=== PATIENT | male | born 1935 | race Caucasian/White ===

== ENCOUNTER 2017-06-29 13:29 | Inpatient (IN) | payer OTHER, MEDICARE ==
[~2017-06-29] VITALS: Ht 180.3 cm; Wt 98.2 kg
[~2017-06-29 13:29] MED LIST: CARV25TA2 PO; COU4T PO; CYA500T PO; FURO20TA4 PO; LACT1CAP57 PO; LISI-600 PO; LYR75C PO; MAGN400C PO; METF500T PO; POTA-82 PO; SIMV20TA5 PO; SPIIN INH; WARF3TAB7 PO
[2017-06-29 14:00] LABS: BASOPHILS % (AUTO) 0.1 % (0-1); EOSINOPHILS # (AUTO) 0.1 X10'3 (0-0.9); EOSINOPHILS % (AUTO) 2.5 % (0-6); HEMATOCRIT 28.1 % (42.0-52.0); HEMOGLOBIN 9.3 g/dl (14.0-17.9); LYMPHOCYTES # (AUTO) 0.4 X10'3 (1.1-4.8); LYMPHOCYTES % (AUTO) 8.8 % (21-51); MEAN CORPUSCULAR HEMOGLOBIN 34.3 PG (27.0-31.0); MEAN CORPUSCULAR HGB CONC 33.3 % (33.0-36.5); MEAN PLATELET VOLUME 6.9 FL (7.4-10.4); MONOCYTES # (AUTO) 0.4 X10'3 (0-0.9); MONOCYTES % (AUTO) 10.6 % (2-12); NEUTROPHILS # (AUTO) 3.2 X10'3 (1.8-7.7); PLATELET COUNT 173 X10'3 (140-440); RED BLOOD COUNT 2.72 X10'6 (4.70-6.10); RED CELL DISTRIBUTION WIDTH 14.8 % (11.5-14.5); WHITE BLOOD COUNT 4.1 X10'3 (4.5-11.0)
[2017-06-29 14:11] LABS: INR 3.9 INR; PARTIAL THROMBOPLASTIN TIME 44 SECONDS (22-32); PROTHROMBIN TIME 38.7 SECONDS (9.0-12.0)
[2017-06-29 14:21] LABS: ALANINE AMINOTRANSFERASE 25 U/L (12-78); ALBUMIN 3.5 G/DL (3.4-5.0); ALBUMIN/GLOBULIN RATIO 0.9 (1.1-1.5); ALKALINE PHOSPHATASE 167 IU/L (46-116); ANION GAP 8 (8-16); ASPARTATE AMINO TRANSFERASE 23 U/L (10-37); BILIRUBIN,TOTAL 0.7 MG/DL (0.1-1.0); BLOOD UREA NITROGEN 24 MG/DL (7-18); BUN/CREATININE RATIO 23.3 (5.4-32.0); CALCIUM 8.9 MG/DL (8.5-10.1); CHLORIDE 99 MMOL/L (99-107); CREATININE 1.03 MG/DL (0.60-1.10); GLUCOSE 102 MG/DL (70-104); POTASSIUM 4.9 MMOL/L (3.5-5.1); SODIUM 134 MMOL/L (135-145); TOTAL CARBON DIOXIDE 26.9 MMOL/L (24-32); TOTAL PROTEIN 7.2 G/DL (6.4-8.2); eGFR 69 ML/MIN
[2017-06-29] MEDS ORDERED: furosemide 10 MG/1 ML 10ml inj IV ONE (15:15)
[2017-06-29] MEDS ORDERED: potassium Cl 40MEQ/NS 500ml 500 ML IV PRN ×2 (15:50)
[2017-06-29] MEDS ORDERED: magnesium Cl slow-release 64mg tablet PO PRN (15:50)
[2017-06-29] MEDS ORDERED: potassium Cl 20 mEq SR tablet PO PRN ×2 (15:50)
[2017-06-29] MEDS ORDERED: mag hydrox/Alum hydrox/simeth 30ml oral suspension PO PRN (15:50)
[2017-06-29] MEDS ORDERED: acetaminophen 325mg tablet PO PRN ×2 (15:50)
[2017-06-29] MEDS ORDERED: magnesium 4gm in 100ml NS 100 ML IV PRN (15:50)
[2017-06-29] MEDS ORDERED: ondansetron/PF 4mg/2ml inj IV PRN (15:50)
[2017-06-29] MEDS ORDERED: magnesium hydroxide 30ml (MOM) UD suspension PO PRN (15:50)
[2017-06-29] MEDS: K and/or MAG REPLACEMENT MC SCH (15:50)
[2017-06-29] MEDS ORDERED: magnesium 2GM in 50ml NS 50 ML IV PRN (15:50)
[2017-06-29] MEDS: potassium Cl 20 mEq SR tablet PO SCH (16:10)
[2017-06-29] MEDS ORDERED: DOCU100C41 PO (17:44)
[2017-06-29] MEDS ORDERED: BUDE10.22 INH (17:44)
[2017-06-29] MEDS ORDERED: ASPI-1265 PO (17:44)
[2017-06-29] MEDS ORDERED: ALBU8.5H8 INH (17:44)
[2017-06-29] MEDS ORDERED: METF500T PO (17:53)
[2017-06-29] MEDS ORDERED: MULT-38 PO (17:53)
[2017-06-29] MEDS ORDERED: PREG150C PO (17:53)
[2017-06-29] MEDS ORDERED: SILD50TA PO (17:53)
[2017-06-29] MEDS ORDERED: FURO40TA4 PO (17:53)
[2017-06-29 19:00] VITALS: BP 153/58
[2017-06-29 20:39] LABS: HEMOGLOBIN A1C 6.1 % (4.5-6.2)
[2017-06-29] MEDS: furosemide 40mg/4ml inj IV SCH (20:46)
[2017-06-29] MEDS: atorvastatin 10mg tablet PO SCH (20:47)
[2017-06-29] MEDS: lisinopril 10 MG tablet PO SCH (20:47)
[2017-06-29] MEDS: pregabalin 75mg capsule PO SCH (20:47)
[2017-06-29] MEDS: magnesium oxide 400mg tablet PO SCH (20:47)
[2017-06-29] MEDS: carVEDilol 12.5mg tablet PO SCH (20:47)
[2017-06-29] MEDS ORDERED: temazepam 15mg capsule PO PRN (21:00)
[2017-06-29] MEDS ORDERED: CARVEDILOL 12.5 MG PO SCH (21:00)
[2017-06-29] MEDS: ipratropium 0.5 MG/2.5ML nebule IH SCH (21:17)
[2017-06-29 23:00] VITALS: BP 100/50
[2017-06-30 01:50] LABS: PROTHROMBIN TIME 29.5 SECONDS (9.0-12.0)
[2017-06-30 01:54] LABS: HEMATOCRIT 24.9 % (42.0-52.0); HEMOGLOBIN 8.5 g/dl (14.0-17.9); MEAN CORPUSCULAR HEMOGLOBIN 34.9 PG (27.0-31.0); MEAN CORPUSCULAR VOLUME 102.6 FL (78-98); MEAN PLATELET VOLUME 7.6 FL (7.4-10.4); PLATELET COUNT 163 X10'3 (140-440); RED BLOOD COUNT 2.43 X10'6 (4.70-6.10); RED CELL DISTRIBUTION WIDTH 14.6 % (11.5-14.5); WHITE BLOOD COUNT 3.8 X10'3 (4.5-11.0)
[2017-06-30 01:57] LABS: ALBUMIN 3.2 G/DL (3.4-5.0); ANION GAP 8 (8-16); BLOOD UREA NITROGEN 24 MG/DL (7-18); BUN/CREATININE RATIO 22.6 (5.4-32.0); CALCIUM 8.1 MG/DL (8.5-10.1); CHLORIDE 98 MMOL/L (99-107); CREATININE 1.06 MG/DL (0.60-1.10); GLUCOSE 97 MG/DL (70-104); MAGNESIUM 1.7 MG/DL (1.5-2.4); POTASSIUM 3.9 MMOL/L (3.5-5.1); SODIUM 134 MMOL/L (135-145); TOTAL CARBON DIOXIDE 28.5 MMOL/L (24-32); eGFR 67 ML/MIN
[2017-06-30 03:00] VITALS: BP 120/52
[2017-06-30] MEDS: ipratropium 0.5 MG/2.5ML nebule IH SCH ×4 (03:04→20:19)
[2017-06-30 06:00] VITALS: BP 123/62
[2017-06-30] MEDS: furosemide 40mg/4ml inj IV SCH ×2 (07:17→19:28)
[2017-06-30] MEDS: carVEDilol 12.5mg tablet PO SCH (07:17)
[2017-06-30] MEDS: pregabalin 75mg capsule PO SCH ×2 (07:17→19:29)
[2017-06-30] MEDS: K and/or MAG REPLACEMENT MC SCH (07:22)
[2017-06-30] MEDS ORDERED: enoxaparin 40mg/0.4ml syringe SQ SCH (08:00)
[2017-06-30] MEDS ORDERED: warfarin 4mg tablet PO SCH (08:00)
[2017-06-30 11:00] VITALS: BP 108/41
[2017-06-30 15:00] VITALS: BP 112/64
[2017-06-30 18:00] VITALS: BP 108/44
[2017-06-30] MEDS: guaiFENesin ER 600mg tablet PO SCH (19:28)
[2017-06-30] MEDS: carvedilol 6.25mg tablet PO SCH (19:28)
[2017-06-30] MEDS: atorvastatin 10mg tablet PO SCH (19:29)
[2017-06-30] MEDS: magnesium oxide 400mg tablet PO SCH (19:30)
[2017-06-30] MEDS: lisinopril 10 MG tablet PO SCH (19:30)
[2017-06-30 22:00] VITALS: BP 98/52
[2017-07-01 02:00] VITALS: BP 113/54
[2017-07-01] MEDS: ipratropium 0.5 MG/2.5ML nebule IH SCH ×2 (02:57→08:47)
[2017-07-01 05:22] LABS: HEMATOCRIT 25.4 % (42.0-52.0); HEMOGLOBIN 8.5 g/dl (14.0-17.9); MEAN CORPUSCULAR HEMOGLOBIN 34.1 PG (27.0-31.0); MEAN CORPUSCULAR HGB CONC 33.5 % (33.0-36.5); MEAN CORPUSCULAR VOLUME 101.8 FL (78-98); MEAN PLATELET VOLUME 7.4 FL (7.4-10.4); PLATELET COUNT 155 X10'3 (140-440); RED CELL DISTRIBUTION WIDTH 14.4 % (11.5-14.5); WHITE BLOOD COUNT 3.5 X10'3 (4.5-11.0)
[2017-07-01 05:41] LABS: PROTHROMBIN TIME 20.5 SECONDS (9.0-12.0)
[2017-07-01 05:53] LABS: ALBUMIN 3.1 G/DL (3.4-5.0); ANION GAP 6 (8-16); BLOOD UREA NITROGEN 26 MG/DL (7-18); BUN/CREATININE RATIO 24.8 (5.4-32.0); CALCIUM 8.4 MG/DL (8.5-10.1); CHLORIDE 98 MMOL/L (99-107); CREATININE 1.05 MG/DL (0.60-1.10); GLUCOSE 104 MG/DL (70-104); SODIUM 134 MMOL/L (135-145); TOTAL CARBON DIOXIDE 29.8 MMOL/L (24-32); eGFR 68 ML/MIN
[2017-07-01 06:00] VITALS: BP 122/68
[2017-07-01] MEDS: potassium Cl 20 mEq SR tablet PO SCH (07:59)
[2017-07-01] MEDS: guaiFENesin ER 600mg tablet PO SCH (07:59)
[2017-07-01] MEDS: furosemide 40mg/4ml inj IV SCH (07:59)
[2017-07-01] MEDS: carvedilol 6.25mg tablet PO SCH (07:59)
[2017-07-01] MEDS: pregabalin 75mg capsule PO SCH (07:59)
[2017-07-01] MEDS: K and/or MAG REPLACEMENT MC SCH (08:00)
[2017-07-01] MEDS ORDERED: FURO40TA4 PO (10:01)
== END 2017-07-01 11:45 | disposition home or self-care (01) | DRG 292 ==
LOC: ER 13:29 → ED HOLD 15:47 → PCU 3S 18:00
PROVIDERS: ADMIT Family Medicine; ATTEND Family Medicine
DX: I11.0 Hypertensive heart disease with heart failure (principal); E87.1 Hypo-osmolality and hyponatremia; D68.9 Coagulation defect, unspecified; I48.91 Unspecified atrial fibrillation; E11.9 Type 2 diabetes mellitus without complications; D64.9 Anemia, unspecified; I50.23 Acute on chronic systolic (congestive) heart failure; I25.10 Atherosclerotic heart disease of native coronary artery without angina pectoris; E78.00 Pure hypercholesterolemia, unspecified; J44.9 Chronic obstructive pulmonary disease, unspecified; R79.89 Other specified abnormal findings of blood chemistry; E78.5 Hyperlipidemia, unspecified; Z96.611 Presence of right artificial shoulder joint; Z96.612 Presence of left artificial shoulder joint; Z96.652 Presence of left artificial knee joint; Z95.5 Presence of coronary angioplasty implant and graft; Z95.2 Presence of prosthetic heart valve; I25.2 Old myocardial infarction; Z79.01 Long term (current) use of anticoagulants; Z88.6 Allergy status to analgesic agent; Z86.19 Personal history of other infectious and parasitic diseases; Z85.72 Personal history of non-Hodgkin lymphomas; Z86.73 Personal history of transient ischemic attack (TIA), and cerebral infarction without residual deficits; Z82.41 Family history of sudden cardiac death; Z82.49 Family history of ischemic heart disease and other diseases of the circulatory system
CPT/HCPCS: 36415; 71045; 80048; 80053; 83036; 83735; 83880; 84484; 85025; 85027; 85610; 85730; 87070; 93005; 93306; 94640; 94760; 96374; 99285; A6258; J1940; J7030

== ENCOUNTER 2018-02-16 22:08 | Emergency (ER) | payer MEDICARE, OTHER ==
[~2018-02-16] VITALS: Ht 172.7 cm; Wt 100.2 kg
[~2018-02-16 22:08] MED LIST changes: +ALBU8.5H8 INH; +ASPI-1265 PO; +BUDE10.22 INH; +DOCU100C41 PO; -FURO20TA4 PO; +FURO40TA4 PO; -LYR75C PO; -MAGN400C PO; +MULT-38 PO; +PREG150C PO; +SILD50TA PO; +WARF3TAB56 PO; -WARF3TAB7 PO
[2018-02-16] MEDS ORDERED: HYDROcodone/acetaminophen 10/325mg tab PO ONE (23:50)
[2018-02-17] MEDS ORDERED: dexamethasone sod phosphate 10mg/ml inj PO STA (00:26)
[2018-02-17 01:43] LABS: ALANINE AMINOTRANSFERASE 20 U/L (12-78); ALBUMIN 3.6 G/DL (3.4-5.0); ALKALINE PHOSPHATASE 109 IU/L (46-116); ANION GAP 9 (8-16); ASPARTATE AMINO TRANSFERASE 16 U/L (10-37); BILIRUBIN,TOTAL 1.2 MG/DL (0.1-1.0); BLOOD UREA NITROGEN 16 MG/DL (7-18); BUN/CREATININE RATIO 17.8 (5.4-32.0); CALCIUM 8.9 MG/DL (8.5-10.1); CHLORIDE 100 MMOL/L (99-107); GLUCOSE 108 MG/DL (70-104); POTASSIUM 3.9 MMOL/L (3.5-5.1); SODIUM 136 MMOL/L (135-145); TOTAL CARBON DIOXIDE 27.1 MMOL/L (24-32); TOTAL PROTEIN 7.1 G/DL (6.4-8.2); eGFR 81 ML/MIN
[2018-02-17 02:16] VITALS: BP 131/81
[2018-02-17 02:18] LABS: BASOPHILS % (AUTO) 0 % (0-1); EOSINOPHILS % (AUTO) 0.6 % (0-6); HEMATOCRIT 28.3 % (42.0-52.0); HEMOGLOBIN 9.6 g/dl (14.0-17.9); LYMPHOCYTES # (AUTO) 0.3 X10'3 (1.1-4.8); LYMPHOCYTES % (AUTO) 5.3 % (21-51); MEAN CORPUSCULAR HEMOGLOBIN 34.4 PG (27.0-31.0); MEAN CORPUSCULAR HGB CONC 33.9 % (33.0-36.5); MEAN CORPUSCULAR VOLUME 101.5 FL (78-98); MEAN PLATELET VOLUME 7.5 FL (7.4-10.4); MONOCYTES # (AUTO) 0.5 X10'3 (0-0.9); MONOCYTES % (AUTO) 8.4 % (2-12); NEUTROPHILS # (AUTO) 5.4 X10'3 (1.8-7.7); NEUTROPHILS % (AUTO) 85.7 % (42-75); PLATELET COUNT 191 X10'3 (140-440); RED BLOOD COUNT 2.79 X10'6 (4.70-6.10); RED CELL DISTRIBUTION WIDTH 14.8 % (11.5-14.5); WHITE BLOOD COUNT 6.3 X10'3 (4.5-11.0)
[2018-02-17] MEDS ORDERED: COLC1TAB2 PO (02:22)
[2018-02-17] MEDS ORDERED: HYDR-3965 PO (02:22)
== END 2018-02-17 02:53 | disposition home or self-care (01) ==
LOC: ER 22:09
DX: T82.897A Other specified complication of cardiac prosthetic devices, implants and grafts, initial encounter (principal); M10.9 Gout, unspecified; M25.522 Pain in left elbow; M25.422 Effusion, left elbow; I48.91 Unspecified atrial fibrillation; I11.0 Hypertensive heart disease with heart failure; I50.9 Heart failure, unspecified; E78.00 Pure hypercholesterolemia, unspecified; I25.2 Old myocardial infarction; J44.9 Chronic obstructive pulmonary disease, unspecified; E11.9 Type 2 diabetes mellitus without complications; Z95.5 Presence of coronary angioplasty implant and graft; Z98.890 Other specified postprocedural states; Z95.0 Presence of cardiac pacemaker; Z88.5 Allergy status to narcotic agent; Z79.82 Long term (current) use of aspirin; Z79.01 Long term (current) use of anticoagulants; Z79.899 Other long term (current) drug therapy; Y92.9 Unspecified place or not applicable
CPT/HCPCS: 36415; 73070; 80053; 84145; 84550; 85025; 99285; A6251; A6255; A6258; A6449; J1100; A6257

== ENCOUNTER 2018-03-17 18:42 | Inpatient (IN) | payer MEDICARE, OTHER ==
[~2018-03-17] VITALS: Ht 172.7 cm; Wt 98.2 kg
[~2018-03-17 18:42] MED LIST changes: +COLC1TAB2 PO; +HYDR-3965 PO
[2018-03-17] MEDS ORDERED: vancomycin/NS 1 GM ADD-VANTAGE 250 ML IV ONE (21:50)
[2018-03-17] MEDS ORDERED: CefTRIAXone 2gm/D5W 50ml 50 ML IV ONE (21:50)
[2018-03-17] MEDS ORDERED: normal saline 1000ml 1,000 ML IV ONE (21:55)
[2018-03-17 22:55] LABS: BASOPHILS % (AUTO) 0.3 % (0-1); EOSINOPHILS # (AUTO) 0.2 X10'3 (0-0.9); EOSINOPHILS % (AUTO) 3.7 % (0-6); HEMATOCRIT 30.3 % (42.0-52.0); HEMOGLOBIN 10.4 g/dl (14.0-17.9); LYMPHOCYTES # (AUTO) 0.4 X10'3 (1.1-4.8); LYMPHOCYTES % (AUTO) 7.9 % (21-51); MEAN CORPUSCULAR HEMOGLOBIN 33.7 PG (27.0-31.0); MEAN CORPUSCULAR HGB CONC 34.2 % (33.0-36.5); MEAN CORPUSCULAR VOLUME 98.5 FL (78-98); MEAN PLATELET VOLUME 7.1 FL (7.4-10.4); MONOCYTES # (AUTO) 0.5 X10'3 (0-0.9); MONOCYTES % (AUTO) 8.7 % (2-12); NEUTROPHILS # (AUTO) 4.3 X10'3 (1.8-7.7); NEUTROPHILS % (AUTO) 79.4 % (42-75); PLATELET COUNT 280 X10'3 (140-440); RED BLOOD COUNT 3.07 X10'6 (4.70-6.10); RED CELL DISTRIBUTION WIDTH 15.1 % (11.5-14.5); WHITE BLOOD COUNT 5.4 X10'3 (4.5-11.0)
[2018-03-17 23:10] LABS: INR 1.9 INR; PARTIAL THROMBOPLASTIN TIME 42 SECONDS (22-32); PROTHROMBIN TIME 18.9 SECONDS (9.0-12.0)
[2018-03-17 23:12] LABS: CLARITY,URINE CLEAR (Clear); COLOR,URINE YELLOW (Yellow); GLUCOSE, URINE NEGATIVE (Neg); KETONES,URINE NEGATIVE (Neg); LEUKOCYTE ESTERASE ,URINE NEGATIVE (Neg); NITRITES, URINE NEGATIVE (Neg); OCCULT BLOOD,URINE NEGATIVE (Neg); PH,URINE 6.5 (4.8-8.0); PROTEIN,URINE NEGATIVE (Neg); UROBILINOGEN,URINE 0.2 E.U/dL (0.2-1.0)
[2018-03-17 23:13] LABS: ALANINE AMINOTRANSFERASE 21 U/L (12-78); ALBUMIN 3.3 G/DL (3.4-5.0); ALBUMIN/GLOBULIN RATIO 0.8 (1.1-1.5); ALKALINE PHOSPHATASE 127 IU/L (46-116); ANION GAP 9 (8-16); ASPARTATE AMINO TRANSFERASE 21 U/L (10-37); BILIRUBIN,TOTAL 0.5 MG/DL (0.1-1.0); BLOOD UREA NITROGEN 10 MG/DL (7-18); CHLORIDE 98 MMOL/L (99-107); CREATININE 0.83 MG/DL (0.60-1.10); GLUCOSE 112 MG/DL (70-104); MAGNESIUM 1.9 MG/DL (1.5-2.4); POTASSIUM 4.3 MMOL/L (3.5-5.1); SODIUM 137 MMOL/L (135-145); TOTAL CARBON DIOXIDE 30.5 MMOL/L (24-32); TOTAL PROTEIN 7.5 G/DL (6.4-8.2); eGFR 89 ML/MIN
[2018-03-17 23:13] LABS: UA COLLECTION TYPE VOIDED
[2018-03-17] MEDS ORDERED: LIDO1ADH TP (23:33)
[2018-03-18] MEDS ORDERED: acetaminophen 650mg rectal suppository RC PRN (00:05)
[2018-03-18] MEDS ORDERED: insulin Lispro (HumaLOG) vial - multi-dose SQ SCH (00:05)
[2018-03-18] MEDS ORDERED: glucagon, human recombinant 1mg kit SUBCUT PRN (00:05)
[2018-03-18] MEDS ORDERED: ondansetron/PF 4mg/2ml inj IV PRN (00:05)
[2018-03-18] MEDS ORDERED: metoclopramide 5 mg/ml inj IV PRN (00:05)
[2018-03-18] MEDS ORDERED: diphenhydrAMINE 50 mg/ml inj IV PRN (00:05)
[2018-03-18] MEDS ORDERED: HYDROcodone/acetaminophen 5mg/325mg tablet PO PRN (00:05)
[2018-03-18] MEDS ORDERED: diphenhydrAMINE 25mg capsule PO PRN (00:05)
[2018-03-18] MEDS ORDERED: acetaminophen 325mg tablet PO PRN ×2 (00:05)
[2018-03-18] MEDS ORDERED: dextrose ORAL solution 15 GM/59 ML bottle PO PRN ×2 (00:05)
[2018-03-18] MEDS ORDERED: dextrose 50%-water 50ml dispensing syringe IV PRN ×2 (00:05)
[2018-03-18] MEDS ORDERED: bisacodyl 10mg suppository rectal RC PRN (00:05)
[2018-03-18] MEDS ORDERED: magnesium hydroxide 30ml (MOM) UD suspension PO PRN (00:05)
[2018-03-18] MEDS ORDERED: mag hydrox/Alum hydrox/simeth 30ml oral suspension PO PRN (00:05)
[2018-03-18] MEDS ORDERED: MESSAGE TO PHARMACY PO ONE (00:05)
[2018-03-18 00:45] LABS: HEMOGLOBIN A1C 6.2 % (4.5-6.2)
[2018-03-18 01:00] VITALS: BP 151/77
[2018-03-18] MEDS ORDERED: albuterol 2.5 MG/3 ML nebule NEB PRN (04:00)
[2018-03-18 06:00] VITALS: BP 156/79
[2018-03-18] MEDS: pregabalin 75mg capsule PO SCH ×2 (07:24→20:22)
[2018-03-18] MEDS: docusate sod 100mg capsule PO SCH ×2 (07:25→20:22)
[2018-03-18] MEDS: furosemide 10 MG/1 ML 10ml inj IV SCH ×2 (07:29→20:22)
[2018-03-18] MEDS: pantoprazole 40mg Tablet.DR PO SCH (07:30)
[2018-03-18] MEDS: piperacillin/tazo 4.5gm/100ml 100 ML IV SCH ×2 (07:48→16:19)
[2018-03-18] MEDS ORDERED: warfarin 3mg tablet PO SCH (08:00)
[2018-03-18] MEDS ORDERED: vancomycin inj 1,250 MG in normal saline 250ml IV soln 250 ML IV SCH (08:00)
[2018-03-18] MEDS ORDERED: albuterol 2.5 MG/3 ML nebule NEB SCH (08:00)
[2018-03-18] MEDS ORDERED: vancomycin inj 1,000 MG in normal saline 250ml IV soln 250 ML IV SCH (08:00)
[2018-03-18] MEDS: BUDESONIDE 0.25 MG/2 ML AMPUL.NEB IH SCH ×2 (08:02→20:23)
[2018-03-18] MEDS ORDERED: ipratropium/albuterol 3ml nebule NEB PRN (08:25)
[2018-03-18 10:00] VITALS: BP 115/52
[2018-03-18 13:08] LABS: INR 1.7 INR; PROTHROMBIN TIME 17.5 SECONDS (9.0-12.0)
[2018-03-18] MEDS ORDERED: ipratropium 0.5 MG/2.5ML nebule IH SCH (14:00)
[2018-03-18] MEDS ORDERED: iohexol 300mg/ml 100ml inj. ONE (16:38)
[2018-03-18 17:00] VITALS: BP 156/78
[2018-03-18] MEDS: predniSONE 20 mg tablet PO SCH (17:39)
[2018-03-18] MEDS: lactobacillus rhamnosus 10,000 MMU CELLS/CAPSULE PO SCH (20:22)
[2018-03-18] MEDS: ipratropium/albuterol 3ml nebule NEB SCH (20:23)
[2018-03-18] MEDS: atorvastatin 10mg tablet PO SCH (20:23)
[2018-03-18] MEDS ORDERED: warfarin 4mg tablet PO SCH (21:00)
[2018-03-18] MEDS ORDERED: temazepam 15mg capsule PO PRN (21:00)
[2018-03-18] MEDS ORDERED: warfarin 7.5mg tablet PO ONE (21:00)
[2018-03-18 22:00] VITALS: BP 145/76
[2018-03-19] MEDS: piperacillin/tazo 4.5gm/100ml 100 ML IV SCH ×3 (00:06→16:24)
[2018-03-19 05:30] LABS: BASOPHILS % (AUTO) 0 % (0-1); EOSINOPHILS % (AUTO) 0.7 % (0-6); HEMATOCRIT 26.8 % (42.0-52.0); HEMOGLOBIN 9.2 g/dl (14.0-17.9); LYMPHOCYTES # (AUTO) 0.2 X10'3 (1.1-4.8); LYMPHOCYTES % (AUTO) 5.3 % (21-51); MEAN CORPUSCULAR HEMOGLOBIN 33.7 PG (27.0-31.0); MEAN CORPUSCULAR HGB CONC 34.2 % (33.0-36.5); MEAN CORPUSCULAR VOLUME 98.5 FL (78-98); MONOCYTES # (AUTO) 0.2 X10'3 (0-0.9); NEUTROPHILS # (AUTO) 3.9 X10'3 (1.8-7.7); PLATELET COUNT 260 X10'3 (140-440); RED BLOOD COUNT 2.72 X10'6 (4.70-6.10); RED CELL DISTRIBUTION WIDTH 15.1 % (11.5-14.5); WHITE BLOOD COUNT 4.3 X10'3 (4.5-11.0)
[2018-03-19 05:53] LABS: INR 1.6 INR; PROTHROMBIN TIME 15.9 SECONDS (9.0-12.0)
[2018-03-19 06:12] LABS: ALANINE AMINOTRANSFERASE 13 U/L (12-78); ALBUMIN 2.9 G/DL (3.4-5.0); ALBUMIN/GLOBULIN RATIO 0.8 (1.1-1.5); ALKALINE PHOSPHATASE 101 IU/L (46-116); ANION GAP 11 (8-16); ASPARTATE AMINO TRANSFERASE 27 U/L (10-37); BILIRUBIN,TOTAL 0.7 MG/DL (0.1-1.0); BLOOD UREA NITROGEN 10 MG/DL (7-18); BUN/CREATININE RATIO 10.8 (5.4-32.0); CALCIUM 8.4 MG/DL (8.5-10.1); CHLORIDE 99 MMOL/L (99-107); CREATININE 0.93 MG/DL (0.60-1.10); GLUCOSE 144 MG/DL (70-104); POTASSIUM 3.4 MMOL/L (3.5-5.1); SODIUM 138 MMOL/L (135-145); TOTAL CARBON DIOXIDE 28.1 MMOL/L (24-32); TOTAL PROTEIN 6.6 G/DL (6.4-8.2); eGFR 78 ML/MIN
[2018-03-19] MEDS: pantoprazole 40mg Tablet.DR PO SCH (07:56)
[2018-03-19] MEDS: predniSONE 20 mg tablet PO SCH (07:56)
[2018-03-19] MEDS: pregabalin 75mg capsule PO SCH ×2 (07:57→19:59)
[2018-03-19] MEDS: lactobacillus rhamnosus 10,000 MMU CELLS/CAPSULE PO SCH (07:58)
[2018-03-19] MEDS: docusate sod 100mg capsule PO SCH ×2 (07:58→19:59)
[2018-03-19] MEDS: furosemide 10 MG/1 ML 10ml inj IV SCH ×2 (08:01→20:00)
[2018-03-19] MEDS: BUDESONIDE 0.25 MG/2 ML AMPUL.NEB IH SCH ×2 (08:35→20:41)
[2018-03-19] MEDS: ipratropium/albuterol 3ml nebule NEB SCH ×3 (08:35→20:41)
[2018-03-19 09:39] VITALS: BP_SYST 111; BP_SYST 152; BP_DIAS 60; BP_DIAS 78
[2018-03-19] MEDS ORDERED: MESSAGE TO NURSING PO NR (10:00)
[2018-03-19 10:58] VITALS: BP 110/52
[2018-03-19] MEDS ORDERED: potassium Cl 20 mEq SR tablet PO PRN (15:50)
[2018-03-19] MEDS ORDERED: potassium Cl 40MEQ/NS 500ml 500 ML IV PRN ×2 (15:50)
[2018-03-19] MEDS: potassium Cl 20 mEq SR tablet PO PRN ×2 (16:25→21:24)
[2018-03-19] MEDS ORDERED: povidone-iodine 120ml topical solution TP ONE (17:30)
[2018-03-19 18:00] VITALS: BP 131/62
[2018-03-19] MEDS ORDERED: VANCOMYCIN LEVEL IV NR (19:30)
[2018-03-19] MEDS: atorvastatin 10mg tablet PO SCH (20:03)
[2018-03-19] MEDS ORDERED: warfarin 7.5mg tablet PO ONE (21:00)
[2018-03-19 22:00] VITALS: BP 110/58
[2018-03-20] MEDS: piperacillin/tazo 4.5gm/100ml 100 ML IV SCH ×2 (00:08→08:01)
[2018-03-20 06:00] VITALS: BP 118/57
[2018-03-20 06:32] LABS: BASOPHILS % (AUTO) 0.1 % (0-1); EOSINOPHILS # (AUTO) 0.1 X10'3 (0-0.9); EOSINOPHILS % (AUTO) 2.2 % (0-6); HEMATOCRIT 27.4 % (42.0-52.0); HEMOGLOBIN 9.3 g/dl (14.0-17.9); LYMPHOCYTES # (AUTO) 0.6 X10'3 (1.1-4.8); LYMPHOCYTES % (AUTO) 12.5 % (21-51); MEAN CORPUSCULAR HEMOGLOBIN 33.5 PG (27.0-31.0); MEAN CORPUSCULAR HGB CONC 33.9 % (33.0-36.5); MEAN PLATELET VOLUME 7.1 FL (7.4-10.4); MONOCYTES # (AUTO) 0.4 X10'3 (0-0.9); MONOCYTES % (AUTO) 8.3 % (2-12); NEUTROPHILS # (AUTO) 3.9 X10'3 (1.8-7.7); NEUTROPHILS % (AUTO) 76.9 % (42-75); PLATELET COUNT 244 X10'3 (140-440); RED BLOOD COUNT 2.77 X10'6 (4.70-6.10); RED CELL DISTRIBUTION WIDTH 14.8 % (11.5-14.5); WHITE BLOOD COUNT 5.1 X10'3 (4.5-11.0)
[2018-03-20 06:38] LABS: INR 1.7 INR; PROTHROMBIN TIME 17.4 SECONDS (9.0-12.0)
[2018-03-20 06:52] LABS: ALANINE AMINOTRANSFERASE 23 U/L (12-78); ALBUMIN 2.9 G/DL (3.4-5.0); ALBUMIN/GLOBULIN RATIO 0.8 (1.1-1.5); ALKALINE PHOSPHATASE 83 IU/L (46-116); ANION GAP 8 (8-16); ASPARTATE AMINO TRANSFERASE 38 U/L (10-37); BILIRUBIN,TOTAL 0.5 MG/DL (0.1-1.0); BLOOD UREA NITROGEN 18 MG/DL (7-18); BUN/CREATININE RATIO 16.2 (5.4-32.0); CALCIUM 8.6 MG/DL (8.5-10.1); CHLORIDE 101 MMOL/L (99-107); CREATININE 1.11 MG/DL (0.60-1.10); GLUCOSE 119 MG/DL (70-104); MAGNESIUM 1.9 MG/DL (1.5-2.4); POTASSIUM 3.4 MMOL/L (3.5-5.1); SODIUM 139 MMOL/L (135-145); TOTAL CARBON DIOXIDE 30.2 MMOL/L (24-32); TOTAL PROTEIN 6.4 G/DL (6.4-8.2); VANCOMYCIN,RANDOM 16.2 UG/ML; eGFR 64 ML/MIN
[2018-03-20] MEDS: docusate sod 100mg capsule PO SCH (07:59)
[2018-03-20] MEDS: pregabalin 75mg capsule PO SCH (07:59)
[2018-03-20] MEDS: predniSONE 20 mg tablet PO SCH (07:59)
[2018-03-20] MEDS: pantoprazole 40mg Tablet.DR PO SCH (07:59)
[2018-03-20] MEDS: furosemide 10 MG/1 ML 10ml inj IV SCH (08:00)
[2018-03-20] MEDS ORDERED: levoFLOXACIN-Levaquin 500mg/D5 100 ML IV SCH (08:20)
[2018-03-20] MEDS ORDERED: sulfamethoxazole/trimethoprim DS (800/160mg) tablet PO SCH (08:20)
[2018-03-20] MEDS: ipratropium/albuterol 3ml nebule NEB SCH (08:28)
[2018-03-20] MEDS: BUDESONIDE 0.25 MG/2 ML AMPUL.NEB IH SCH (08:28)
[2018-03-20] MEDS ORDERED: potassium Cl 20 mEq SR tablet PO SCH (08:30)
[2018-03-20] MEDS ORDERED: vancomycin/NS 1 GM ADD-VANTAGE 250 ML IV SCH (09:00)
[2018-03-20 11:00] VITALS: BP 121/61
[2018-03-20] MEDS ORDERED: LEVO500T2 PO (11:42)
[2018-03-20] MEDS ORDERED: BACDS PO (11:42)
[2018-03-20] MEDS ORDERED: AMOX-580 PO (12:02)
[2018-03-20] MEDS ORDERED: amox tr/potassium clavulanate 875/125mg TAB PO SCH (12:10)
[2018-03-20] MEDS ORDERED: COU7.5T PO (14:24)
[2018-03-20] MEDS ORDERED: warfarin 7.5mg tablet PO ONE (21:00)
[2018-03-21] MEDS ORDERED: VANCOMYCIN LEVEL IV ONE (20:30)
== END 2018-03-20 14:50 | disposition home health service (06) | DRG 602 ==
LOC: ER 18:42 → ED HOLD 03-18 00:03 → ORTHO 4S 03-18 01:06
PROVIDERS: ADMIT Family Medicine; ATTEND Internal Medicine
DX: L03.031 Cellulitis of right toe (principal); I50.33 Acute on chronic diastolic (congestive) heart failure; L03.115 Cellulitis of right lower limb; L97.518 Non-pressure chronic ulcer of other part of right foot with other specified severity; E11.65 Type 2 diabetes mellitus with hyperglycemia; I11.0 Hypertensive heart disease with heart failure; I48.91 Unspecified atrial fibrillation; J44.9 Chronic obstructive pulmonary disease, unspecified; E78.00 Pure hypercholesterolemia, unspecified; E87.6 Hypokalemia; E11.51 Type 2 diabetes mellitus with diabetic peripheral angiopathy without gangrene; D64.9 Anemia, unspecified; L30.9 Dermatitis, unspecified; I25.10 Atherosclerotic heart disease of native coronary artery without angina pectoris; Z95.1 Presence of aortocoronary bypass graft; Z95.3 Presence of xenogenic heart valve; I25.2 Old myocardial infarction; Z88.5 Allergy status to narcotic agent; Z86.73 Personal history of transient ischemic attack (TIA), and cerebral infarction without residual deficits; Z86.14 Personal history of Methicillin resistant Staphylococcus aureus infection; Z82.41 Family history of sudden cardiac death; Z80.9 Family history of malignant neoplasm, unspecified; Z82.49 Family history of ischemic heart disease and other diseases of the circulatory system; Z95.0 Presence of cardiac pacemaker
CPT/HCPCS: 36415; 71045; 73590; 73620; 73701; 80053; 80202; 81003; 82948; 83036; 83605; 83735; 83880; 84100; 84145; 85025; 85610; 85730; 87040; 87070; 87075; 93005; 93922; 93926; 94640; 94760; 96365; 96368; 99285; J0696; J1940; J1956; J2543; J3370; J7030; J7512; Q9967